=== PATIENT | female | born 1955 | race Caucasian/White ===

== ENCOUNTER 2022-05-06 07:53 | Observation (INO) | payer MEDICARE ==
[2022-05-01 12:43] LABS: BASOPHILS % (AUTO) 1.6 % (0.0-5.0); EOSINOPHILS % (AUTO) 3.1 % (0.0-8.0); HEMATOCRIT 39.5 % (36-48); LYMPHOCYTES % (AUTO) 29.1 % (21.0-51.0); MEAN CORPUSCULAR HEMOGLOBIN 28.7 pg (27.0-33.0); MEAN CORPUSCULAR HGB CONC 32.9 g/dL (32.0-36.0); MEAN CORPUSCULAR VOLUME 87.2 fL (79-99); MONOCYTES % (AUTO) 7.9 % (3.0-13.0); NEUTROPHILS % (AUTO) 58.1 % (40.0-77.0); PLATELET COUNT (AUTO) 293 K/uL (130-400); RED BLOOD CELL COUNT(AUTO) 4.53 MIL/uL (4.00-5.50); RED CELL DISTRIBUTION WIDTH 13.3 % (11.0-15.5); WHITE BLOOD COUNT (AUTO) 6.5 K/uL (4.8-10.8)
[2022-05-01 12:56] LABS: INR 0.97 (0.85-1.15); PROTHROMBIN TIME 10.6 SEC (9.6-11.6)
[2022-05-01 12:58] LABS: PARTIAL THROMBOPLASTIN TIME 24.1 SEC (26.3-35.5)
[2022-05-01 13:02] LABS: CREATININE 0.9 mg/dL (0.5-1.5); POTASSIUM 3.5 mmol/L (3.5-5.1)
[2022-05-05 11:11] VITALS: BP 155/80
[~2022-05-06] VITALS: Ht 157.5 cm; Wt 57.7 kg
[2022-05-06] VITALS (20 sets, daily range): BP systolic 129–174; BP diastolic 41–84
[~2022-05-06 07:53] MED LIST: ALEN70TA80 PO; ASCO500C6 PO; CETI10TA57 PO; DULA1.5P SQ; ESZO3 PO; LEVO112C4 PO; ZINC220T4 PO; [UNRECOGNIZED DRUG - CODE] PO
[2022-05-06] MEDS ORDERED: CEFAZOLIN SODIUM 1 GM VIAL ONE (07:57)
[2022-05-06] MEDS ORDERED: 0.9%NACL 1000ML 1,000 ML IV ONE (07:57)
[2022-05-06] MEDS ORDERED: BUPIVACAINE/PF 0.5% 30ML VIAL ONE (09:31)
[2022-05-06] MEDS ORDERED: GLYCOPYRROLATE 1 MG/5 ML SYRINGE ONE (11:01)
[2022-05-06] MEDS ORDERED: FENTANYL CITRATE PF 50 MCG/1 ML 2ML VIAL ONE ×4 (11:02→14:26)
[2022-05-06] MEDS ORDERED: PROPOFOL 10 MG/ML 20ML VIAL IV ONE (11:02)
[2022-05-06] MEDS ORDERED: ROCURONIUM 10MG/1ML SYR 10 MG/ML ML ONE (11:02)
[2022-05-06] MEDS ORDERED: MIDAZOLAM HCL 1 MG/ML 2ML VIAL ONE (11:02)
[2022-05-06] MEDS ORDERED: TRANEXAMIC ACID 1000MG/10ML ONE (11:23)
[2022-05-06] MEDS ORDERED: CEFAZOLIN SODIUM 2 GM VIAL IV ONE (11:40)
[2022-05-06] MEDS ORDERED: ONDANSETRON 4MG INJ ONE (12:41)
[2022-05-06] MEDS ORDERED: HYDROMORPHONE 1 MG INJ ONE (13:07)
[2022-05-06] MEDS ORDERED: NEOSTIGMINE 5MG/5ML SYR IV ONE (13:50)
[2022-05-06] MEDS ORDERED: HYDROCODONE/ACETAMINOPHEN 5/325 MG TAB PO PRN (14:00)
[2022-05-06] MEDS: 0.9%NACL 1000ML 1,000 ML IV SCH (14:00)
[2022-05-06] MEDS ORDERED: ONDANSETRON 4MG INJ IVP PRN (14:00)
[2022-05-06] MEDS: ACETAMINOPHEN 500 MG TABLET PO SCH ×2 (14:00→23:25)
[2022-05-06] MEDS ORDERED: KETOROLAC 15MG/ML VIAL (15MG/ML) ONE (14:55)
[2022-05-06] MEDS ORDERED: MEPERIDINE-PF 25 MG/ML SYG ONE (14:58)
[2022-05-06] MEDS: TRAMADOL HCL 50 MG TABLET PO SCH ×2 (17:41→23:26)
[2022-05-06] MEDS: CEFAZOLIN SODIUM 1 GM VIAL IVP SCH (18:49)
[2022-05-06] MEDS: FAMOTIDINE 20MG TAB PO SCH (20:45)
[2022-05-06] MEDS: MORPHINE 4 MG SYG IVP PRN (20:47)
[2022-05-06] MEDS ORDERED: ASPIRIN 81 MG EC TAB PO SCH (21:00)
[2022-05-06] MEDS: LUNESTA 3 MG PO SCH (23:27)
[2022-05-07 00:15] VITALS: BP 130/65
[2022-05-07] MEDS: MORPHINE 4 MG SYG IVP PRN ×4 (00:41→21:42)
[2022-05-07] MEDS: CEFAZOLIN SODIUM 1 GM VIAL IVP SCH (04:09)
[2022-05-07 04:19] LABS: HEMATOCRIT 31.7 % (36-48); MEAN CORPUSCULAR HEMOGLOBIN 28.7 pg (27.0-33.0); MEAN CORPUSCULAR HGB CONC 31.5 g/dL (32.0-36.0); MEAN CORPUSCULAR VOLUME 90.8 fL (79-99); RED BLOOD CELL COUNT(AUTO) 3.49 MIL/uL (4.00-5.50); RED CELL DISTRIBUTION WIDTH 13.3 % (11.0-15.5); WHITE BLOOD COUNT (AUTO) 8.8 K/uL (4.8-10.8)
[2022-05-07 04:33] LABS: POTASSIUM 3.7 mmol/L (3.5-5.1)
[2022-05-07] MEDS: LEVOTHYROXINE 112 MCG TABLET PO SCH (06:41)
[2022-05-07] MEDS: TRAMADOL HCL 50 MG TABLET PO SCH ×4 (06:42→23:13)
[2022-05-07] MEDS: ACETAMINOPHEN 500 MG TABLET PO SCH ×3 (06:42→19:50)
[2022-05-07 08:00] VITALS: BP 113/48
[2022-05-07] MEDS: 0.9%NACL 1000ML 1,000 ML IV SCH ×2 (08:22)
[2022-05-07] MEDS: FAMOTIDINE 20MG TAB PO SCH ×2 (08:29→19:43)
[2022-05-07] MEDS: ENOXAPARIN SODIUM 30 MG/0.3 ML SQ SCH (08:29)
[2022-05-07] MEDS: POLYETHYLENE GLYCOL 3350 17 GM POWD.PACK PO SCH (08:29)
[2022-05-07] MEDS: HYDROCODONE/ACETAMINOPHEN 10/325 MG TAB PO PRN (11:00)
[2022-05-07 12:00] VITALS: BP 130/52
[2022-05-07] MEDS: CELESTONE SOLUSPAN 6 MG/ML 5ML VIAL IM SCH (13:00)
[2022-05-07] MEDS ORDERED: PREDNISONE 10 MG TABLET PO ONE (15:30)
[2022-05-07 16:00] VITALS: BP 122/78
[2022-05-07] MEDS: KETOROLAC 15MG/ML VIAL (15MG/ML) IV PRN (19:43)
[2022-05-07] MEDS: LUNESTA 3 MG PO SCH (19:44)
[2022-05-07 20:54] VITALS: BP 142/49
[2022-05-07 23:28] VITALS: BP 122/54
[2022-05-08 03:39] VITALS: BP 149/59
[2022-05-08] MEDS: TRAMADOL HCL 50 MG TABLET PO SCH ×3 (05:44→16:46)
[2022-05-08] MEDS: LEVOTHYROXINE 112 MCG TABLET PO SCH (05:44)
[2022-05-08] MEDS: ACETAMINOPHEN 500 MG TABLET PO SCH ×2 (05:45→15:19)
[2022-05-08 08:00] VITALS: BP 141/57
[2022-05-08] MEDS: FAMOTIDINE 20MG TAB PO SCH (08:06)
[2022-05-08] MEDS: ENOXAPARIN SODIUM 30 MG/0.3 ML SQ SCH (08:06)
[2022-05-08] MEDS: POLYETHYLENE GLYCOL 3350 17 GM POWD.PACK PO SCH (08:06)
[2022-05-08] MEDS: HYDROCODONE/ACETAMINOPHEN 10/325 MG TAB PO PRN (08:07)
[2022-05-08] MEDS: KETOROLAC 15MG/ML VIAL (15MG/ML) IV PRN ×2 (08:17→16:46)
[2022-05-08] MEDS ORDERED: PREDNISONE 10 MG TABLET PO SCH (09:00)
[2022-05-08] MEDS: MORPHINE 4 MG SYG IVP PRN (11:27)
[2022-05-08 12:00] VITALS: BP 138/66
[2022-05-08] MEDS: CELESTONE SOLUSPAN 6 MG/ML 5ML VIAL IM SCH (12:42)
[2022-05-09] MEDS ORDERED: BISACODYL 10 MG SUPP.RECT RC PRN (14:00)
[2022-05-13] MEDS ORDERED: **HM**TRULICITY 1.5MG SQ SCH (09:00)
== END 2022-05-08 17:25 | disposition home or self-care (01) ==
LOC: DAH 07:53 → DAHIP 07:54 → DAH 07:54 → 4DH 15:45
PROVIDERS: ADMIT Orthopaedic Surgery; ATTEND Orthopaedic Surgery
DX: M17.12 Unilateral primary osteoarthritis, left knee (principal); Z20.822 Contact with and (suspected) exposure to COVID-19; M25.562 Pain in left knee; G89.29 Other chronic pain; E11.9 Type 2 diabetes mellitus without complications; G47.00 Insomnia, unspecified; M81.0 Age-related osteoporosis without current pathological fracture; Z79.899 Other long term (current) drug therapy; Z98.890 Other specified postprocedural states
CPT/HCPCS: 97039 ×3; 80048 ×2; 85025; 85610; 85730; 87426; 36415 ×2; 93005; 64447; 76942; 27447; 96374; 96375 ×2; 82948 ×9; 96376 ×2; 96372 ×2; 85027; 97161; 97116 ×4; 97530 ×3; A6260; G0378 ×48; A4663; J7030 ×2; A4649 ×4; C1776; J0690 ×4; J3010 ×4; J1170; J3490 ×3; J2710; J2250; J2704; J2405 ×2; J2270 ×6; J2175; J1885 ×4; G0168; A6255; A6254; A5120; A4215; A4223; A4221; C1751; J1650 ×2; J7512 ×2; J0702